=== PATIENT | male | born 1985 | race Caucasian/White ===

== ENCOUNTER 2018-02-05 19:09 | Emergency (ER) | payer BC, OTHER ==
[~2018-02-05] VITALS: Ht 182.9 cm; Wt 87.8 kg
[2018-02-05 19:12] VITALS: BP 138/93
[2018-02-05] MEDS ORDERED: METHOCARBAMOL 750 MG TABLET ONE (19:48)
[2018-02-05] MEDS ORDERED: METHOCARBAMOL 750 MG TABLET PO ONE (20:00)
== END 2018-02-05 20:44 | disposition home or self-care (01) ==
LOC: ED 20:35
DX: S39.012A Strain of muscle, fascia and tendon of lower back, initial encounter (principal); M54.16 Radiculopathy, lumbar region; Z88.0 Allergy status to penicillin; X58.XXXA Exposure to other specified factors, initial encounter; Y93.89 Activity, other specified; Y99.8 Other external cause status; Y92.89 Other specified places as the place of occurrence of the external cause
CPT/HCPCS: 72110; 99284; J7512

== ENCOUNTER 2018-12-02 14:15 | Emergency (ER) | payer OTHER ==
[~2018-12-02] VITALS: Ht 182.9 cm; Wt 84.8 kg
[2018-12-02 14:24] VITALS: BP 148/95
[2018-12-02] MEDS ORDERED: LIDOCAINE 2%, 20ML SQ ONE ×2 (14:30→15:00)
[2018-12-02] MEDS ORDERED: LIDOCAINE-MPF 1%, 2ML ONE (14:39)
[2018-12-02] MEDS ORDERED: BACITRACIN ZINC OINT 500U/GM, 0.9 GM ONE (15:21)
== END 2018-12-02 15:27 | disposition home or self-care (01) ==
LOC: ED 15:23
DX: S01.511A Laceration without foreign body of lip, initial encounter (principal); X58.XXXA Exposure to other specified factors, initial encounter; Y93.89 Activity, other specified; Y92.69 Other specified industrial and construction area as the place of occurrence of the external cause; Y99.8 Other external cause status
CPT/HCPCS: 40650; 99284